=== PATIENT | female | born 1970 | race Caucasian/White ===

== ENCOUNTER 2018-10-03 13:12 | Inpatient (IN) | payer OTHER ==
[~2018-10-03] VITALS: Ht 167.6 cm; Wt 54.9 kg
[2018-10-03] VITALS (10 sets, daily range): BP systolic 132–143
[2018-10-03 14:18] LABS: MEAN CORPUSCULAR HEMOGLOBIN 21 pg (27-31); MEAN CORPUSCULAR HGB CONC 29 % (32-36); MEAN CORPUSCULAR VOLUME 74 fL (79.0-98.0); PLATELET COUNT (AUTO) 182 K/uL (130-430); RED BLOOD CELL COUNT(AUTO) 2.42 MIL/uL (4.2-6.2); RED CELL DISTRIBUTION WIDTH 19.2 % (9.0-15.0); WHITE BLOOD COUNT (AUTO) 3.8 K/uL (4.8-10.8)
[2018-10-03 14:20] LABS: HEMATOCRIT 17.8 % (36-48); HEMOGLOBIN 5.2 g/dL (12.0-16.0)
[2018-10-03 14:23] LABS: CALCIUM 7.9 mg/dL (8.4-11.0); CREATININE 0.69 mg/dL (0.55-1.30)
[2018-10-03 14:28] LABS: ALBUMIN 2.5 g/dL (3.4-4.8); TOTAL BILIRUBIN 1.8 mg/dL (0.0-1.0)
[2018-10-03 14:32] LABS: INR 1.2 (0.8-1.2); PROTHROMBIN TIME 12.1 SECS (9.5-12.5)
[2018-10-03 14:35] LABS: POTASSIUM 2.8 mmol/L (3.5-5.1)
[2018-10-03 14:41] LABS: BASOPHILS % (MANUAL) 0 % (0-2); EOSINOPHILS % (MANUAL) 4 % (0-7); LYMPHOCYTES % (MANUAL) 31 % (20-46); MONOCYTES % (MANUAL) 5 % (0-11)
[2018-10-03] MEDS ORDERED: KCL 20 mEq in 100 mL (PREMIX) 100 ML IV ONE (14:45)
[2018-10-03] MEDS ORDERED: PANTOPRAZOLE SODIUM 40 MG/VIAL (PROTONIX) IVP ONE (15:00)
[2018-10-03] MEDS: NACL 0.9% 1,000 ML IV SCH (15:25)
[2018-10-03] MEDS ORDERED: IBUPROFEN 600 MG TABLET PO ONE (15:30)
[2018-10-03] MEDS ORDERED: BISACODYL 5 MG TABLET.DR (DULCOLAX) PO ONE (18:00)
[2018-10-03] MEDS ORDERED: GOLYTELY / COLYTE SOLUTION 4 LITERS PO ONE (18:00)
[2018-10-03] MEDS ORDERED: ACETAMINOPHEN 325 MG TABLET PO PRN (19:45)
[2018-10-03] MEDS: PANTOPRAZOLE SODIUM 40 MG/VIAL (PROTONIX) IVP SCH (20:26)
[2018-10-03] MEDS ORDERED: PANTOPRAZOLE SODIUM 40 MG/VIAL (PROTONIX) IVP SCH (21:00)
[2018-10-03] MEDS ORDERED: CEPH-568 PO (21:55)
[2018-10-04] VITALS (18 sets, daily range): BP systolic 117–143
[2018-10-04 01:05] LABS: HEMATOCRIT 24.9 % (36-48); HEMOGLOBIN 7.5 g/dL (12.0-16.0)
[2018-10-04] MEDS: NACL 0.9% 1,000 ML IV SCH ×2 (01:24→11:00)
[2018-10-04 08:24] LABS: CREATININE 0.58 mg/dL (0.55-1.30)
[2018-10-04 08:29] LABS: HEMATOCRIT 26.4 % (36-48); HEMOGLOBIN 8.3 g/dL (12.0-16.0)
[2018-10-04 08:34] LABS: POTASSIUM 2.8 mmol/L (3.5-5.1)
[2018-10-04] MEDS ORDERED: POTASSIUM CHLORIDE 20 MEQ TAB.PRT.SR PO ONE (09:15)
[2018-10-04] MEDS ORDERED: ONDANSETRON HCL 4 MG/2 ML VIAL IM PRN (09:15)
[2018-10-04] MEDS: PANTOPRAZOLE SODIUM 40 MG/VIAL (PROTONIX) IVP SCH (09:29)
[2018-10-04] MEDS ORDERED: SIMETHICONE 40 MG/0.6 ML ML ONE (11:12)
[2018-10-04] MEDS: MIDAZOLAM HCL 5 MG/5 ML VIAL ONE ×4 (11:42→11:55)
[2018-10-04] MEDS: fentaNYL CITRATE/PF 100 MCG/2 ML AMP ONE ×3 (11:42→11:50)
[2018-10-04] MEDS ORDERED: fentaNYL CITRATE/PF 100 MCG/2 ML AMP ONE (12:07)
[2018-10-04 12:34] LABS: HEMATOCRIT 26.5 % (36-48); HEMOGLOBIN 8.3 g/dL (12.0-16.0)
[2018-10-04] MEDS ORDERED: HYDROCORTISONE ACETATE 1 SUPP (ANUSOL HC) RC SCH (21:00)
== END 2018-10-04 15:55 | disposition home or self-care (01) | DRG 379 ==
LOC: SED 13:12 → SIC 14:56
PROVIDERS: ADMIT Internal Medicine Hospice and Palliative Medicine; ATTEND Internal Medicine Hospice and Palliative Medicine
PROC: 30233N1 Transfusion of Nonautologous Red Blood Cells into Peripheral Vein, Percutaneous Approach (ICD-10-PCS; 2018-10-03)
PROC: 0DBP8ZX Excision of Rectum, Via Natural or Artificial Opening Endoscopic, Diagnostic (ICD-10-PCS; principal; 2018-10-04 11:30)
DX: K92.2 Gastrointestinal hemorrhage, unspecified (principal); D64.9 Anemia, unspecified; F17.210 Nicotine dependence, cigarettes, uncomplicated; K64.4 Residual hemorrhoidal skin tags; K76.0 Fatty (change of) liver, not elsewhere classified; K52.9 Noninfective gastroenteritis and colitis, unspecified; K62.89 Other specified diseases of anus and rectum; K57.90 Diverticulosis of intestine, part unspecified, without perforation or abscess without bleeding; F10.10 Alcohol abuse, uncomplicated; E87.6 Hypokalemia; Z90.710 Acquired absence of both cervix and uterus; Z88.0 Allergy status to penicillin; Z88.1 Allergy status to other antibiotic agents; Z88.8 Allergy status to other drugs, medicaments and biological substances
CPT/HCPCS: 36415; 80048; 80053; 85007; 85018-TC; 85027; 85610-TC; 86886; 86900; 86901; 86920; 87081; 88305; 96374; 99285; C9113; J2250; J2405; J3010; J3480; J7040; P9021